=== PATIENT | female | born 1995 | race Caucasian/White ===

== ENCOUNTER 2024-04-04 09:57 | Emergency (ER) | payer OTHER ==
[~2024-04-04] VITALS: Ht 160 cm; Wt 81.6 kg
[2024-04-04 10:02] VITALS: BP_SYST 125; PULSE 81; TEMP 98.4; O2SAT 95
[2024-04-04 10:28] LABS: BILIRUBIN,URINE NEGATIVE (NEGATIVE); BLOOD, URINE 2+ (NEGATIVE); CLARITY/URINE CLEAR (CLEAR); COLOR,URINE YELLOW (YELLOW); GLUCOSE,URINE NEGATIVE (NEGATIVE); KETONES,URINE NEGATIVE (NEGATIVE); LEUKOCYTE ESTERASE ,URINE 1+ (NEGATIVE); NITRITE, URINE NEGATIVE (NEGATIVE); PROTEIN URINE NEGATIVE (NEGATIVE); UROBILINOGEN,URINE 0.2 (0.2-1.0)
[2024-04-04 10:43] LABS: BACTERIA,URINE MODERATE /HPF (None Seen)
[2024-04-04 10:44] LABS: MUCUS,URINE 1+ /LPF (None Seen)
[2024-04-04] MEDS ORDERED: NITR-85 PO (10:59)
[2024-04-04 11:10] VITALS: BP_SYST 125; PULSE 81; RESP 16; TEMP 98.4; O2SAT 95
== END 2024-04-04 11:10 | disposition home or self-care (01) ==
LOC: SED 09:57
DX: N39.0 Urinary tract infection, site not specified (principal); L29.2 Pruritus vulvae; R30.0 Dysuria
CPT/HCPCS: 81000; 81001; 81015; 81025; 82948; 87086; 99283